=== PATIENT | female | born 1965 | race Two or more races ===

== ENCOUNTER 2018-05-03 19:47 | Emergency (ER) | payer SELFPAY ==
[~2018-05-03] VITALS: Ht 152.4 cm; Wt 68.7 kg
[2018-05-04] MEDS ORDERED: ONDANSETRON 4MG ODT PO STA (00:30)
[2018-05-04] MEDS ORDERED: MAGNESIUM/ALUMINUM HYDROXIDE/SIMETHICONE 30ML UDC PO STA (00:30)
[2018-05-04] MEDS ORDERED: VISCOUS LIDOCAINE 2% 15 ML UDC PO STA (00:30)
[2018-05-04 00:56] LABS: CLARITY URINE TURBID (CLEAR); COLOR URINE YELLOW (YELLOW); KETONES URINE NEGATIVE (NEGATIVE); LEUKOCYTE ESTERASE URINE NEGATIVE (NEGATIVE); NITRITE URINE NEGATIVE (NEGATIVE); OCCULT BLOOD URINE NEGATIVE (NEGATIVE); PH URINE >=9.0 (4.5-8.0); PROTEIN URINE TRACE (NEGATIVE); SPECIFIC GRAVITY URINE 1.024 (1.005-1.030)
[2018-05-04 01:11] LABS: BASOPHILS % 0.5 % (0.0-2.0); EOSINOPHILS % 0.5 % (0.0-5.0); HEMATOCRIT. 37.2 % (36.0-48.0); HEMOGLOBIN. 12.5 g/dL (12.0-16.0); LYMPHOCYTES % 22.1 % (20.0-50.0); MEAN CORPUSCULAR HEMOGLOBIN 28.6 pg (28.0-32.0); MEAN CORPUSCULAR VOLUME 84.9 fL (81.0-99.0); MEAN PLATELET VOLUME 8.9 fl (7.4-10.4); MONOCYTES % 5.4 % (2.0-8.0); NEUTROPHILS % 71.5 % (40.0-76.0); PLATELET 244 x1000/uL (130-400); RED BLOOD CELL COUNT 4.38 mill/uL (4.2-5.4)
[2018-05-04 01:17] LABS: INR 0.9; PROTHROMBIN TIME 9.4 sec (9.1-11.1)
[2018-05-04 01:19] LABS: CHLORIDE 110 mEq/L (98-107)
[2018-05-04 01:20] LABS: HCG SCREEN NEGATIVE
[2018-05-04 04:12] VITALS: BP 116/77
== END 2018-05-04 04:15 | disposition home or self-care (01) ==
LOC: ER 19:47
DX: K29.00 Acute gastritis without bleeding (principal); D17.71 Benign lipomatous neoplasm of kidney; I10 Essential (primary) hypertension; E11.9 Type 2 diabetes mellitus without complications
CPT/HCPCS: 36415; 74176; 76705; 80053; 81003; 81025; 83690; 84703; 85025; 85610; 99284; Q0162